=== PATIENT | female | born 1950 | race Two or more races ===

== ENCOUNTER 2023-08-01 07:32 | Day surgery (SDC) | payer OTHER | END 2023-08-01 11:05 | disposition home or self-care (01) | LOC: AMB-ENDOS 07:32 → CIR.AMB 14:30 → AMB-ENDOS 14:30 | PROVIDERS: ATTEND Surgery | DX: K57.30 Diverticulosis of large intestine without perforation or abscess without bleeding (principal); R10.9 Unspecified abdominal pain; R19.4 Change in bowel habit; K64.8 Other hemorrhoids; Z20.822 Contact with and (suspected) exposure to COVID-19 ==